=== PATIENT | female | born 1940 ===

== ENCOUNTER → 2017-08-23 18:44 | Outpatient (CLI) | payer MEDICARE ==
[2017-08-23 20:42] LABS: INR 1.49 (0.85-1.17); PROTIME 17.5 SECONDS (11.6-15.0)
== END | disposition home or self-care (01) ==
LOC: D.LABREF 18:44
PROVIDERS: Internal Medicine
DX: I48.91 Unspecified atrial fibrillation (principal)

== ENCOUNTER → 2017-09-08 15:46 | Outpatient (CLI) | payer MEDICARE ==
[2017-09-08 21:22] LABS: PROTIME 49.8 SECONDS (11.6-15.0)
[2017-09-08 21:23] LABS: INR 5.62 (0.85-1.17)
== END | disposition home or self-care (01) ==
LOC: D.LABREF 15:46
PROVIDERS: Internal Medicine
DX: I48.91 Unspecified atrial fibrillation (principal)

== ENCOUNTER → 2017-09-12 17:28 | Outpatient (CLI) | payer MEDICARE ==
[2017-09-12 18:34] LABS: INR 3.87 (0.85-1.17); PROTIME 37.1 SECONDS (11.6-15.0)
== END | disposition home or self-care (01) ==
LOC: D.LABREF 17:28
PROVIDERS: Internal Medicine
DX: I82.409 Acute embolism and thrombosis of unspecified deep veins of unspecified lower extremity (principal)

== ENCOUNTER → 2017-09-19 13:40 | Outpatient (CLI) | payer MEDICARE ==
[2017-09-19 14:29] LABS: INR 2.11 (0.85-1.17); PROTIME 23.1 SECONDS (11.6-15.0)
== END | disposition home or self-care (01) ==
LOC: D.LABREF 13:40
PROVIDERS: Internal Medicine
DX: I82.409 Acute embolism and thrombosis of unspecified deep veins of unspecified lower extremity (principal); Z51.81 Encounter for therapeutic drug level monitoring; Z79.01 Long term (current) use of anticoagulants